=== PATIENT | female | born 1970 ===

== ENCOUNTER 2017-12-01 09:06 | Emergency (ER) | payer MEDICAID, MEDICARE, OTHER ==
--- NOTE | 2017-12-01 10:25 | C.PDOC ---
History Of Present Illness 47 y/o female with history of DM and Bipolar disorder presents to ED brought by [facility] with c/o dizziness and stating she needs 2 days of rest. Patient was seen twice at [facility] yesterday and discharge with no acute findings. Patient has been evaluated for dizziness previously with no acute findings and states he needs something to eat. Patient denies headache, chest pain, sob, nausea, vomiting or any other complaints at this time. Time Seen by Provider: 12/01/17 09:47 Chief Complaint (Nursing): Medical Clearance History Per: Patient History/Exam Limitations: no limitations Onset/Duration Of Symptoms: Days Current Symptoms Are (Timing): Still Present Past Medical History Reviewed: Historical Data, Nursing Documentation, Vital Signs Vital Signs: Last Vital Signs Temp 98.2 F 12/01/17 11:05 Pulse 66 12/01/17 11:05 Resp 17 12/01/17 11:05 BP 110/75 12/01/17 11:05 Pulse Ox 100 12/01/17 11:05 - Medical History PMH: Anxiety, Bipolar Disorder, Diabetes Surgical History: No Surg Hx - [facility] Procedures CLOSED ENDOSCOPIC BIOPSY OF LARGE INTESTINE (07/07/06) ENDOSC POLYPECTOMY OF LG INTEST (07/07/06) ESOPHAGOGASTRODUODENOSCOPY [EGD] W/CLOSED BIOPSY (09/16/05) PSYCHIAT DRUG THERAP NEC (06/27/04) Family History: States: No Known Family Hx - Social History Hx Alcohol Use: (unknown) Hx Substance Use: (unknown) - Immunization History Hx Tetanus Toxoid Vaccination: No Review Of Systems Constitutional: Positive for: Other (fatigue). Negative for: Fever, Chills Cardiovascular: Negative for: Chest Pain Respiratory: Negative for: Cough, Shortness of Breath Gastrointestinal: Negative for: Nausea, Vomiting Skin: Negative for: Rash Neurological: Positive for: Dizziness. Negative for: Weakness, Numbness Physical Exam - Physical Exam Appears: Non-toxic, No Acute Distress Skin: Warm, Dry, No Rash Head: Atraumatic, Normacephalic Eye(s): bilateral: Normal Inspection Oral Mucosa: Moist Neck: Supple Cardiovascular: Rhythm Regular Respiratory: Normal Breath Sounds, No Rales, No Rhonchi, No Wheezing Gastrointestinal/Abdominal: Soft, No Tenderness, No Guarding, No Rebound Extremity: Normal ROM, Capillary Refill (<2 seconds) Neurological/Psych: Oriented x3, Normal Speech, Normal Cognition ED Course And Treatment O2 Sat by Pulse Oximetry: 98 (RA) Pulse Ox Interpretation: Normal Disposition - Disposition Disposition: HOME/ ROUTINE Disposition Time: 11:00 Condition: STABLE Additional Instructions: Follow up with the medical doctor within 1-2 days. Return if worsened. Instructions: Bipolar Disorder (DC) Forms: [employer] (Spanish) - Clinical Impression Clinical Impression: Bipolar disorder - PA / V BELT BUILDER / Resident Statement MD/DO has reviewed & agrees with the documentation as recorded. - Scribe Statement The provider has reviewed the documentation as recorded by the Scribmaggy Bethea All medical record entries made by the Gil were at my direction and personally dictated by me. I have reviewed the chart and agree that the record accurately reflects my personal performance of the history, physical exam, medical decision making, and the department course for this patient. I have also personally directed, reviewed, and agree with the discharge instructions and disposition.
--- NOTE | 2017-12-01 10:28 | C.PDOC ---
Time Seen by Provider: 12/01/17 09:47 Chief Complaint (Nursing): Medical Clearance Past Medical History Vital Signs: Last Vital Signs Temp 98.9 F 12/01/17 09:34 Pulse 92 H 12/01/17 09:34 Resp 18 12/01/17 09:34 BP Pulse Ox 98 12/01/17 10:25 - Medical History PMH: Anxiety, Bipolar Disorder, Diabetes - [facility] Procedures CLOSED ENDOSCOPIC BIOPSY OF LARGE INTESTINE (07/07/06) ENDOSC POLYPECTOMY OF LG INTEST (07/07/06) ESOPHAGOGASTRODUODENOSCOPY [EGD] W/CLOSED BIOPSY (09/16/05) PSYCHIAT DRUG THERAP NEC (06/27/04) - Social History Hx Alcohol Use: (unknown) Hx Substance Use: (unknown) - Immunization History Hx Tetanus Toxoid Vaccination: No ED Course And Treatment O2 Sat by Pulse Oximetry: 98 Disposition - Disposition Forms: [employer] (Tristanian)
[2017-12-01 11:07] VITALS: BP 110/75; PULSE 66; RESP 17; TEMP 98.2
[2017-12-02 22:10] VITALS: O2SAT 98
== END 2017-12-01 11:07 | disposition home or self-care (01) ==
LOC: C.ER 09:06
DX: F31.9 Bipolar disorder, unspecified (principal); E11.9 Type 2 diabetes mellitus without complications

== ENCOUNTER 2017-12-25 20:06 | Inpatient (IN) | payer MEDICAID, MEDICARE, OTHER ==
[2017-12-25 20:31] VITALS: O2SAT 100
--- NOTE | 2017-12-25 21:30 | C.PDOC ---
History Of Present Illness The patient presents to the ED stating she is hungry. Patient offers no medical complaints at this time and is refusing to be fully examined. She denies suicidal/homicidal ideation. Time Seen by Provider: 12/25/17 21:15 Chief Complaint (Nursing): Psychiatric Evaluation History Per: Patient History/Exam Limitations: no limitations Onset/Duration Of Symptoms: Hrs Current Symptoms Are (Timing): Still Present Suicide/Self Injury Attempted (Context): None Modifying Factor(s): None Severity: None Pain Scale Rating Of: 0 Associated Symptoms: denies: Suicidal Thoughts, Suicidal Plan Involuntary Hold By: None Recent travel outside of the [place]: No Additional History Per: Patient Past Medical History Reviewed: Historical Data, Nursing Documentation, Vital Signs Vital Signs: Last Vital Signs Temp 98.6 F 12/25/17 20:28 Pulse 75 12/25/17 20:28 Resp 20 12/25/17 20:28 BP 128/85 12/25/17 20:28 Pulse Ox 100 12/25/17 21:51 - Medical History PMH: Anxiety, Bipolar Disorder, Depression, Diabetes Denies: Hepatitis, HIV, HTN, Chronic Kidney Disease, Seizures, Sexually Transmitted Disease Surgical History: - [facility] Procedures CLOSED ENDOSCOPIC BIOPSY OF LARGE INTESTINE (07/07/06) ENDOSC POLYPECTOMY OF LG INTEST (07/07/06) ESOPHAGOGASTRODUODENOSCOPY [EGD] W/CLOSED BIOPSY (09/16/05) PSYCHIAT DRUG THERAP NEC (06/27/04) Family History: States: Unknown Family Hx - Social History Hx Alcohol Use: No Hx Substance Use: No (unknown) - Immunization History Hx Tetanus Toxoid Vaccination: No Hx Influenza Vaccination: No Hx Pneumococcal Vaccination: No Review Of Systems Constitutional: Positive for: Other (requesting food ). Negative for: Fever, Chills Cardiovascular: Negative for: Chest Pain, Palpitations Respiratory: Negative for: Cough, Shortness of Breath Gastrointestinal: Negative for: Nausea, Vomiting, Abdominal Pain Skin: Negative for: Rash, Lesions, Jaundice, Bruising Neurological: Negative for: Weakness, Numbness Psych: Negative for: Depression, Suicidal ideation Physical Exam - Physical Exam Appears: Non-toxic, No Acute Distress Skin: Warm, Dry Head: Normacephalic Eye(s): bilateral: Normal Inspection Oral Mucosa: Moist Chest: Symmetrical, No Deformity Respiratory: No Accessory Muscle Use Extremity: Normal ROM Neurological/Psych: Oriented x3 ED Course And Treatment - Laboratory Results Result Diagrams: 12/25/17 23:48 12/25/17 23:48 O2 Sat by Pulse Oximetry: 100 (on RA) Pulse Ox Interpretation: Normal Disposition Discussed With : Wild Burton Comment: accepted the pt on his service and took over the care at 1AM Doctor Will See Patient In The: Hospital Counseled Patient/Family Regarding: Studies Performed, Diagnosis - Disposition Disposition: HOSPITALIZED Disposition Time: 21:30 Condition: FAIR Forms: [employer] [employer] (Syriac) - POA Present On Arrival: None - Clinical Impression Clinical Impression: Bipolar 1 disorder - Scribe Statement The provider has reviewed the documentation as recorded by the Scribe (Bree Sexton) Provider Attestation: All medical record entries made by the Scribe were at my direction and personally dictated by me. I have reviewed the chart and agree that the record accurately reflects my personal performance of the history, physical exam, medical decision making, and the department course for this patient. I have also personally directed, reviewed, and agree with the discharge instructions and disposition. Decision To Admit - Pt Status Changed To: Hospital Disposition Of: Inpatient - Admit Certification Admit to Inpatient:: After my assessment, the patient will require hospitalization for at least two midnights. This is because of the severity of symptoms shown, intensity of services needed, and/or the medical risk in this patient being treated as an outpatient. - InPatient: Physician Admission Certification: I certify that this patient requires 2 or more midnights of care for the following reason:: After my assessment, the patient will require hospitalization for at least two midnights. This is because of the severity of symptoms shown, intensity of services needed, and/or the medical risk in this patient being treated as an outpatient. - . Bed Request Type: Psychiatry Admitting Physician: Wild Burton Patient Diagnosis: Bipolar 1 disorder
[2017-12-25 23:52] LABS: EOS % 0.9 % (0.0-4.0); HEMOGLOBIN 13.2 g/dL (11.0-16.0); LYMPH # 2.4 K/uL (1.0-4.3); LYMPH % 47.5 % (20.0-40.0); MEAN CELL VOLUME 98.5 fL (81.0-99.0); MEAN CORPUSCULAR HEMOGLOBIN 33.9 pg (27.0-31.0); MEAN CORPUSCULAR HGB CONC 34.5 g/dL (33.0-37.0); MEAN PLATELET VOLUME 7.3 fL (7.2-11.7); MONO # 0.6 K/uL (0.0-0.8); MONO % 12.9 % (0.0-10.0); NEUT # 1.9 K/uL (1.8-7.0); NEUT % 37.7 % (50.0-75.0); RBC 3.88 Mil/uL (3.80-5.20); RED CELL DISTRIBUTION WIDTH 13.3 % (11.5-14.5)
[2017-12-26 00:03] LABS: ALB/GLOB RATIO 1.2 (1.0-2.1); ALBUMIN 4.2 g/dL (3.5-5.0); ALT/SGPT 26 U/L (9-52); AST/SGOT 18 U/L (14-36); BLOOD UREA NITROGEN 9 mg/dL (7-17); CALCIUM 9.8 mg/dl (8.6-10.4); GFR NON-AFRICAN AMERICAN > 60
[2017-12-26 03:04] LABS: BARBITURATES, UR NEGATIVE (NEGATIVE); BENZODIAZEPINES, UR NEGATIVE (NEGATIVE); OPIATES, UR NEGATIVE (NEGATIVE); PHENCYCLIDINE, UR NEGATIVE (NEGATIVE)
[2017-12-26 03:08] LABS: SQUAMOUS EPITHIAL < 1 /hpf (0-5); URINE BILIRUBIN NEGATIVE (NEGATIVE); URINE BLOOD TRACE (NEGATIVE); URINE CLARITY Clear (Clear); URINE COLOR Straw (YELLOW); URINE GLUCOSE (UA) NORMAL (Normal); URINE LEUKOCYTE ESTERASE NEG Leu/uL (Negative); URINE PROTEIN NEGATIVE (NEGATIVE); URINE UROBILINOGEN NORMAL mg/dL (0.2-1.0)
[2017-12-26 03:09] LABS: HCG,QUALITATIVE URINE NEGATIVE (NEGATIVE)
--- NOTE | 2017-12-26 04:35 | PCM.BM ---
<Kristopher Marx - Last Filed: 12/26/17 04:34> Treatment Plan Problems - Problems identified on initial assessmt DILUSION Date Initiated: 12/26/17 Time Initiated: 04:05 Assessment reference: NA Status: Active Treatment assets and liabiliti Patient Assests: cooperative, ADL independent Patient Liabilities: live alone, financial problems, poor support system, dietary restrictions, medical problems, imparied memory - Milieu Protocol Maintain good personal hygiene: daily Encourage regular showers, daily Remind patient to perform daily oral care, daily Assist patient to perform ADL's Maintain personal safety: every shift Educate patient to report safety concerns to staff, every shift Monitor environment for contraband/sharps Medication safety: Monitor for expected outcome, potential side effects: every shift, Assess barriers to learning: every shift, Assess readiness for medication education: every shift <Jimena Preciado - Last Filed: 12/26/17 10:59> - Diagnosis (1) Schizoaffective disorder Status: Acute Interventions: 12/26/17 11:00 * Assess 7x/week regarding severity of withdrawal * Educate regarding risks, benefits, side effects and alternatives of medications * Use Motivational Interviewing for abstinence * Use CBT for relapse prevention * Medication management for withdrawal symptoms * Encourage medication assisted treatment * <Denisse Raya - Last Filed: 12/26/17 14:46> Family Contact Family involvement: Patient does not wish Family/SO involvement Family contact: Patient declines to allow family contact at present - Goals for Treatment Patient goals for treatment: Patient was not responding to any questions in the treatment meeting. Discharge/Continuing Care - Education Needs Education Needs: Patient Medication, Patient Diagnosis/Disease Process, Patient Coping Skills, Patient Placement options, Patient Community resources - Discharge Discharge Criteria: Free of paranoid thoughts, Normal sleep pattern, Ability to care for self, Reduction of target symptoms Discharge to:: Home, With Family - Treatment Team Participation Discussed with Family/SO: No Was Patient/Family/SO present at Treatment Team Meeting: Yes
[2017-12-26] MEDS: Levothyroxine 75 MCG TAB PO SCH (06:16)
--- NOTE | 2017-12-26 10:55 | PCM.PSYCH ---
Initial Psychiatric Evaluation - Initial Psychiatric Evaluation Type of Admission: Voluntary Legal Status: Capacity Chief Complaint (in patient's own words): moni.' History of Present Illness and Precipitating Events: This is a 47 years old female, who was escorted to the ED from [facility] in a very disorganized behavior. Patient appeared very disorganized, unkempt and disheveled. At the time of evaluation, patient was reading a book in a very disorganized way. She remained internally preoccupied and continued to read the book loudly, in gibraltarian. However as per Dr. Persaudbulkhead carpenter, patient was making her own words. She remained bizarre and psychotic. As per the nurse, when she called her for medications, she came while holding the same book, with both hands and started answering while looking deeply into the book. She continued to read and whisper. As per the ED note, patient remained religiously preoccupied last night. She was talking to herself and was making a one-way conversation last night. as per the hospital charts, patient has history of multiple inpatient psychiatric hospitalizations. Pt has had 2 prior admissions at [facility] (both were involuntary). Her last admission was on September 2016. Pt was subsequently transferred to the [facility]. Per hospital charts, she was just discharged from [facility] 7days ago. She has history of 1 prior suicide attempt, details unknown. Past medical history: Hypothyroidism, DM Current Medications: Active Medications Generic Name Dose Route Start Last Admin Trade Name Freq PRN Reason Stop Dose Admin Benztropine Mesylate 1 mg 12/26/17 10:00 Cogentin PO BID DONAL Haloperidol 5 mg 12/26/17 10:00 Haldol PO BID DONAL Hydroxyzine HCl 50 mg 12/26/17 08:46 Atarax PO Q6H PRN Anxiety Ibuprofen 600 mg 12/26/17 08:46 Motrin Tab PO Q6H PRN Pain, moderate (4-7) Levothyroxine Sodium 75 mcg 12/26/17 06:30 12/26/17 06:16 Synthroid PO 75 mcg DAILY@0630 DONAL Administration Lorazepam 1 mg 12/26/17 08:52 Ativan PO Q8H PRN Agitation Metformin HCl 500 mg 12/26/17 10:00 Glucophage PO BID [facility] Pneumococcal Polyvalent Vaccine 0.5 ml 12/27/17 10:00 Pneumovax 23 Vaccine IM 12/27/17 10:01 .ONCE ONE Quetiapine Fumarate 100 mg 12/26/17 22:00 Seroquel PO [facility] Past Psychiatric History - Past Psychiatric History Previous Treatment History: Inpatient Pertinent Medical Hx (Current Medical&Sleep Prob, Allergies): Allergies Allergy/AdvReac Type Severity Reaction Status Date / Time Latex, Natural Rubber Allergy Intermediate RASH Verified 12/25/17 20:33 Penicillins Allergy RASH Verified 12/25/17 20:33 Benztropine [Cogentin] 1 mg PO HS 12/23/17 Cholecalciferol (Vitamin D3) [Vitamin D3] 2,000 unit PO DAILY 12/23/17 L.acidoph,Saliva/B.bif/S.therm [Acidophilus 175 mg Capsule] 1 cap PO DAILY 12/23 Multivitamin [Multi-Vitamin Daily] 1 tab PO DAILY 12/23/17 Quetiapine Fumarate [Seroquel] 600 mg PO HS 12/23/17 Levothyroxine [Synthroid] 75 mcg PO DAILY #30 tab 12/24/17 metFORMIN [glucOPHAGE] 500 mg PO BID #60 tab 12/24/17 Review of Systems - Review of Systems All systems: reviewed and no additional remarkable complaints except - Psychiatric Psychiatric: Anxiety, Hallucinations, Irritability, Paranoia Mental Status Examination - Personal Presentation Personal Presentation: Looks stated age - Affect Affect: Blunted - Motor Activity Motor Activity: Psychomotor Agitation - Reliability in Providing Information Reliability in Providing Information: Poor, due to alteration in thoughts, Poor , due to altered mood - Speech Speech: Disorganized - Mood Mood: Depressed, Anxious - Formal Thought Process Formal Thought Process: Hallucinations, Delusions, Paranoia, Loosening of associations, Flight of ideas, Circumstantial - Hallucinations/Delusions Hallucinations: Auditory Delusions: Persecution - Obsessions/Compulsions Obsessions: No Compulsions: No - Cognitive Functions Orientation: Person, Place, Situation, Time Sensorium: Alert Attention/Concentration: Attentive Abstract Thinking: [place] Estimate of Intelligence: Below average Judgement: Imparied, as evidence by: Poor judgement, Imparied, as evidence by: Lack of insight into illness - Risk Risk: Diminished functioning - Limitations Limitations: Living alone DSM 5 DX - DSM 5 DSM 5 Diagnosis: Schizoaffective disorder depressed type - Recommended/Plan of Treatment Treatment Recommendations and Plan of Treatment: Schizoaffective disorder depressed type Hypothyroidism Diabetes mellitus CBT Psychoeducation Supportive therapy, group therapy, individual therapy Haldol 5 mg by mouth twice a day Cogentin 1 mg PO BID Seroquel 100 mg PO QHS Klonopin 1 mg PO TID Haldol 5 mg IM Q4 for when necessary Benadryl 50 mg IM Q4 when necessary Continue Metformin Continue Levothyroxine - Smoking Cessation Smoking Cessation Initiated: No
[2017-12-26] MEDS ORDERED: DiphenhydrAMINE 50 mg/ml Inj IM PRN (10:58)
[2017-12-26] MEDS ORDERED: Aluminum Hydroxide/Magnesium Hydroxide Susp (30 mL) PO PRN (17:25)
[2017-12-27] MEDS: Levothyroxine 75 MCG TAB PO SCH (07:02)
[2017-12-27] MEDS ORDERED: Pneumococcal 23-Valent Vaccine IM ONE (10:00)
--- NOTE | 2017-12-27 12:24 | PCM.PYCHPN ---
Psychiatric Progress Note - Psychiatric Progress Note Patient seen today, length of contact: 15 min Patient Chief Complaint: moni.' Problems Identified/Issues Discussed: Patient seen and evaluated, chart reviewed and discussed with the nurse. Pt remained disorganized and internally preoccupied. She remained isolated and withdrawn, and confined to his room. She still appears paranoid and delusional. She is still talking to her self and appears bizarre and disheveled. Patient is compliant with medications and denies any side effects. Symptoms are improving but pt needs more time to stabilize. Support and psychoeducation given. Medication Change: Yes Medical Record Reviewed: Yes Mental Status Examination - Cognitive Function Orientation: Person, Place, Situation, Time Memory: Intact Attention: Poor Concentration: Poor Association: Loose Fund of Knowledge: Poor - Mood Mood: Depressed, Anxious - Affect Affect: Blunted - Speech Speech: Soft - Formal Thought Process Formal Thought Process: Hallucinations, Delusions, Paranoia, Loosening of associations, Flight of ideas, Circumstantial - Suicidal Ideation Suicidal Ideation: No - Homicidal Ideation Homicidal Ideation: No Goal/Treatment Plan - Goal/Treatment Plan Need for Continued Stay: Severe depression anxiety, Severe functional impairment Progress Toward Problem(s) and Goals/Treatment Plan: Schizoaffective disorder depressed type Hypothyroidism Diabetes mellitus CBT Psychoeducation Supportive therapy, group therapy, individual therapy Haldol 10 mg by mouth twice a day Cogentin 1 mg PO BID Seroquel 100 mg PO QHS Klonopin 1 mg PO TID Haldol 5 mg IM Q4 for when necessary Benadryl 50 mg IM Q4 when necessary Continue Metformin Continue Levothyroxine - Smoking Cessation Smoking Cessation Initiated: No
[2017-12-28] MEDS: Levothyroxine 75 MCG TAB PO SCH (06:30)
--- NOTE | 2017-12-28 11:32 | PCM.PYCHPN ---
Psychiatric Progress Note - Psychiatric Progress Note Patient seen today, length of contact: 15 min Patient Chief Complaint: moni.' Problems Identified/Issues Discussed: Patient seen and evaluated, chart reviewed and discussed with the nurse. Pt remained disorganized and internally preoccupied. She remained isolated and withdrawn, and confined to her room. She still appears paranoid and delusional. She is still talking to her self and appears bizarre and disheveled. Patient is compliant with medications and denies any side effects. Symptoms are improving but pt needs more time to stabilize. Support and psychoeducation given. Medication Change: Yes Medical Record Reviewed: Yes Mental Status Examination - Cognitive Function Orientation: Person, Place, Situation, Time Memory: Intact Attention: Poor Concentration: Poor Association: Loose Fund of Knowledge: Poor - Mood Mood: Depressed, Anxious - Affect Affect: Blunted - Speech Speech: Soft - Formal Thought Process Formal Thought Process: Hallucinations, Delusions, Paranoia, Loosening of associations, Flight of ideas, Circumstantial - Suicidal Ideation Suicidal Ideation: No - Homicidal Ideation Homicidal Ideation: No Goal/Treatment Plan - Goal/Treatment Plan Need for Continued Stay: Severe depression anxiety, Severe functional impairment Progress Toward Problem(s) and Goals/Treatment Plan: Schizoaffective disorder depressed type Hypothyroidism Diabetes mellitus CBT Psychoeducation Supportive therapy, group therapy, individual therapy Haldol 10 mg by mouth twice a day Cogentin 1 mg PO BID Seroquel 100 mg PO QHS Klonopin 1 mg PO TID Haldol 5 mg IM Q4 for when necessary Benadryl 50 mg IM Q4 when necessary Continue Metformin Continue Levothyroxine
[2017-12-28] MEDS: Bismuth Subsalicylate 262 mg/15 ml Sus (240 ml) PO PRN (19:35)
[2017-12-29] MEDS: Levothyroxine 75 MCG TAB PO SCH (06:32)
[2017-12-29 06:51] VITALS: RESP 18
[2017-12-29] MEDS ORDERED: Haloperidol Decanoate 100 mg/ml Inj IM ONE (11:00)
--- NOTE | 2017-12-29 11:37 | PCM.PYCHPN ---
Psychiatric Progress Note - Psychiatric Progress Note Patient seen today, length of contact: 15 min Patient Chief Complaint: moni.' Problems Identified/Issues Discussed: Patient seen and evaluated, chart reviewed and discussed with the nurse. She still appears paranoid and delusional. She is still talking to her self and appears bizarre and disheveled. Pt remained disorganized and internally preoccupied. She remained isolated and withdrawn, and confined to her room. She was screened by the [facility]. Patient is compliant with medications and denies any side effects. Symptoms are improving but pt needs more time to stabilize. Support and psychoeducation given. Medication Change: Yes Medical Record Reviewed: Yes Mental Status Examination - Cognitive Function Orientation: Person, Place, Situation, Time Memory: Intact Attention: Poor Concentration: Poor Association: Loose Fund of Knowledge: Poor - Mood Mood: Depressed, Anxious - Affect Affect: Blunted - Speech Speech: Soft - Formal Thought Process Formal Thought Process: Hallucinations, Delusions, Paranoia, Loosening of associations, Flight of ideas, Circumstantial - Suicidal Ideation Suicidal Ideation: No - Homicidal Ideation Homicidal Ideation: No Goal/Treatment Plan - Goal/Treatment Plan Need for Continued Stay: Severe depression anxiety, Severe functional impairment Progress Toward Problem(s) and Goals/Treatment Plan: Schizoaffective disorder depressed type Hypothyroidism Diabetes mellitus CBT Psychoeducation Supportive therapy, group therapy, individual therapy Haldol 10 mg by mouth twice a day Cogentin 1 mg PO BID Seroquel 100 mg PO QHS Klonopin 1 mg PO TID Haldol 5 mg IM Q4 for when necessary Benadryl 50 mg IM Q4 when necessary Continue Metformin Continue Levothyroxine Pt was screened and accepted by the [facility].
[2017-12-30] MEDS: Levothyroxine 75 MCG TAB PO SCH (06:15)
--- NOTE | 2017-12-30 11:11 | PCM.PYCHPN ---
Psychiatric Progress Note - Psychiatric Progress Note Patient seen today, length of contact: 15 min Patient Chief Complaint: moni.' Problems Identified/Issues Discussed: Patient seen and evaluated, chart reviewed and discussed with the nurse. Pt remained disorganized and internally preoccupied. She was found crying in the hallways. She is still talking to her self and appears bizarre and disheveled. She remained isolated and withdrawn, and confined to her room. She still appears paranoid and delusional. Patient is compliant with medications and denies any side effects. Symptoms are improving but pt needs more time to stabilize. Support and psychoeducation given. Medication Change: Yes Medical Record Reviewed: Yes Mental Status Examination - Cognitive Function Orientation: Person, Place, Situation, Time Memory: Intact Attention: Poor Concentration: Poor Association: Loose Fund of Knowledge: Poor - Mood Mood: Depressed, Anxious - Affect Affect: Blunted - Speech Speech: Soft - Formal Thought Process Formal Thought Process: Hallucinations, Delusions, Paranoia, Loosening of associations, Flight of ideas, Circumstantial - Suicidal Ideation Suicidal Ideation: No - Homicidal Ideation Homicidal Ideation: No Goal/Treatment Plan - Goal/Treatment Plan Need for Continued Stay: Severe depression anxiety, Severe functional impairment Progress Toward Problem(s) and Goals/Treatment Plan: Schizoaffective disorder depressed type Hypothyroidism Diabetes mellitus CBT Psychoeducation Supportive therapy, group therapy, individual therapy Haldol 10 mg by mouth twice a day Cogentin 1 mg PO BID Seroquel 100 mg PO QHS Klonopin 1 mg PO TID Haldol 5 mg IM Q4 for when necessary Benadryl 50 mg IM Q4 when necessary Continue Metformin Continue Levothyroxine Pt awaiting for bed at [facility].
--- NOTE | 2017-12-30 20:35 | CARD ---
APPROVED REPORT Date of service: 12/30/2017 EKG Measurement Heart [id number] <Conclusion> Normal sinus rhythm Normal ECG
[2017-12-31] MEDS: Levothyroxine 75 MCG TAB PO SCH (06:35)
[2017-12-31 11:01] VITALS: TEMP 98.6
--- NOTE | 2017-12-31 15:16 | RAD ---
Date of service: 12/30/2017 HISTORY: [facility] screening COMPARISON: No prior. TECHNIQUE: Chest PA and lateral FINDINGS: LUNGS: No active pulmonary disease. PLEURA: No significant pleural effusion identified. No pneumothorax apparent. CARDIOVASCULAR: Normal. OSSEOUS STRUCTURES: No significant abnormalities. VISUALIZED UPPER ABDOMEN: Normal. OTHER FINDINGS: None. IMPRESSION: No active disease.
[2017-12-31 15:30] VITALS: BP 107/73; PULSE 102
[2017-12-31] MEDS: Bismuth Subsalicylate 262 mg/15 ml Sus (240 ml) PO PRN (18:18)
== END 2018-01-01 02:45 | disposition short-term general hospital (02) | DRG 885 ==
LOC: C.ER 20:06 → C.5E 12-26 03:05
PROVIDERS: ADMIT Psychiatry & Neurology Psychiatry; ATTEND Psychiatry & Neurology Psychiatry
PROC: GZ3ZZZZ Medication Management (ICD-10-PCS; principal; 2017-12-26)
PROC: GZHZZZZ Group Psychotherapy (ICD-10-PCS; 2017-12-26)
PROC: GZ56ZZZ Individual Psychotherapy, Supportive (ICD-10-PCS; 2017-12-26)
DX: F25.1 Schizoaffective disorder, depressive type (principal); F31.9 Bipolar disorder, unspecified; E03.9 Hypothyroidism, unspecified; E11.9 Type 2 diabetes mellitus without complications; Z91.5 Personal history of self-harm; Z79.84 Long term (current) use of oral hypoglycemic drugs; Z23 Encounter for immunization